=== PATIENT | male | born 1960 | race Caucasian/White ===

== ENCOUNTER 2017-12-22 13:58 | Emergency (ER) | payer OTHER, MEDICAID ==
[~2017-12-22] VITALS: Ht 165.1 cm; Wt 67.6 kg
[~2017-12-22 13:58] MED LIST: ATENOLOL PO
[2017-12-22 16:17] VITALS: BP 126/86
== END 2017-12-22 17:15 | disposition home or self-care (01) ==
LOC: ED 13:58
DX: H93.11 Tinnitus, right ear (principal); I10 Essential (primary) hypertension; E11.9 Type 2 diabetes mellitus without complications; E78.00 Pure hypercholesterolemia, unspecified

== ENCOUNTER 2019-10-20 13:42 | Emergency (ER) | payer OTHER, MEDICAID ==
[~2019-10-20] VITALS: Ht 165.1 cm; Wt 70.3 kg
[2019-10-20 13:56] VITALS: Ht 165.1 cm; Wt 70.3 kg
[2019-10-20 14:54] LABS: BASOPHIL % 0.5 % (0-2); PLATELET COUNT 228 x10^3mcL (130-400); RED CELL DISTRIBUTION WIDTH 13.9 % (11.5-14.5)
[2019-10-20 15:02] LABS: CALCIUM 8.6 mg/dL (8.5-10.1); CARBON DIOXIDE 26.7 mmol/L (21-32); CHLORIDE SERUM 104 mmol/L (98-107); CREATININE SERUM 0.8 mg/dL (0.7-1.3); GFR1 > 60 mL/min; GLUCOSE SERUM 121 mg/dL (74-106); POTASSIUM SERUM 3.7 mmol/L (3.5-5.1); SODIUM SERUM 141 mmol/L (136-145)
[2019-10-20 15:08] LABS: ALKALINE PHOSPHATASE 73 U/L (46-116); ALT/SGPT 38 U/L (16-63); AST/SGOT 22 U/L (15-37); BILIRUBIN TOTAL 0.5 mg/dL (0.20-1.00); TOTAL PROTEIN, SERUM 7.7 g/dL (6.4-8.2)
[2019-10-20 17:48] VITALS: BP 125/71
== END 2019-10-20 17:49 | disposition home or self-care (01) ==
LOC: ED 13:42
PROVIDERS: Emergency Medicine
DX: I10 Essential (primary) hypertension (principal); E11.9 Type 2 diabetes mellitus without complications
CPT/HCPCS: 36415

== ENCOUNTER 2020-04-07 12:19 | Emergency (ER) | payer OTHER, MEDICAID ==
[~2020-04-07] VITALS: Ht 165.1 cm; Wt 67.6 kg
[2020-04-07 12:33] VITALS: Ht 165.1 cm; Wt 67.6 kg
[2020-04-07 14:12] VITALS: BP 153/84
== END 2020-04-07 14:12 | disposition home or self-care (01) ==
LOC: ED 12:19
DX: I10 Essential (primary) hypertension (principal); E11.9 Type 2 diabetes mellitus without complications; E78.00 Pure hypercholesterolemia, unspecified
CPT/HCPCS: 82962